=== PATIENT | female | born 1980 | race Asian ===

== ENCOUNTER 2016-09-26 19:23 | Emergency (ER) | payer MEDICAID, OTHER ==
[~2016-09-26] VITALS: Ht 157.5 cm; Wt 98.0 kg
[2016-09-26 19:43] VITALS: Ht 157.5 cm; Wt 98.0 kg
[2016-09-26] MEDS ORDERED: ONDANSETRON 4 MG INJ IV STA ×2 (20:20→21:04)
[2016-09-26] MEDS ORDERED: SOD CHLORIDE 0.9% 1,000 ML IV STA (20:20)
[2016-09-26] MEDS ORDERED: morphine 2 MG INJ IV ONE (20:30)
[2016-09-26 20:44] LABS: ADD SCAN DIFF NO
[2016-09-26 20:48] LABS: BASOPHIL # 0.1 10^3/ul (0.0-0.1); BASOPHILS % 0.7 % (0.0-2.0); EOSINOPHILS # 0.2 10^3/ul (0.0-0.5); HEMATOCRIT 31.9 % (37.0-47.0); HEMOGLOBIN 9.5 g/dl (12.0-16.0); LYMPHOCYTES # 4.6 10^3/ul (0.8-2.9); LYMPHOCYTES % 41.4 % (15.0-51.0); MEAN CORPUSCULAR HEMOGLOBIN 22.3 pg (29.0-33.0); MEAN CORPUSCULAR HGB CONC 29.8 g/dl (32.0-37.0); MEAN CORPUSCULAR VOLUME 74.9 fl (82.0-101.0); MEAN PLATELET VOLUME 10.1 fl (7.4-10.4); MONOCYTE # 0.8 10^3/ul (0.3-0.9); MONOCYTES % 7.3 % (0.0-11.0); NEUTROPHIL # 5.3 10^3/ul (1.6-7.5); NEUTROPHILS % 48.2 % (39.0-77.0); NUCLEATED RED BLOOD CELLS% 0.2 /100WBC (0.0-0.0); PLATELET COUNT 441 10^3/UL (140-415); RED BLOOD COUNT 4.26 10^6/ul (4.20-5.40); RED CELL DISTRIBUTION WIDTH 17.4 % (11.5-14.5)
[2016-09-26 20:48] LABS: ADD UMIC YES; URINE BILIRUBIN (Dip) NEGATIVE (NEGATIVE); URINE BLOOD (Dip) 3+ (NEGATIVE); URINE COLOR LT. YELLOW (YELLOW); URINE GLUCOSE (Dip) NEGATIVE (NEGATIVE); URINE KETONES (Dip) NEGATIVE (NEGATIVE); URINE LEUKOCYTE ESTERASE (Dip) NEGATIVE (NEGATIVE); URINE NITRITE (Dip) NEGATIVE (NEGATIVE); URINE TOTAL PROTEIN (Dip) NEGATIVE (NEGATIVE); URINE UROBILINOGEN (Dip) 0.2 E.U./dL (0.1-1.0)
--- NOTE | 2016-09-26 20:48 | ERD ---
ER Documentation Chief Complaint Date/Time DATE: 09/26/16 TIME: 20:42 Chief Complaint right side abd pain x 2 weeks no n/v/d HPI This 36-year-old female presents to emergency department today for abdominal pain, nausea, hematuria, and blood in stool. Patient is from [facility], has a friend with her for translation but she is able to understand some Mauritian. Patient brings paperwork from a clinic documenting that she was seen 09/14/2016 diagnosed with uterine leiomyoma, abdominal pain, and blood in stool. She has multiple referrals pending to gynecology, gastroenterology as well as lab work. Patient is here today because her abdomen is growing in size, pain is increasing. Patient reports mild shortness of breath related to abdomen sides, denies history of pancreatitis, hepatitis, or cholecystitis. Patient reports that she is currently menstruating. Pain greater than 10/10 on pain scale. ROS All systems reviewed and are negative except as per history of present illness. Medications Home Meds Active Scripts Hydrocodone/Acetaminophen (Machias 10-325 Tablet) 1 Each Tablet, 1 TAB PO Q8 Y for PAIN, #7 TAB Prov:KOREY,SIMRAN 09/26/16 Naproxen* (Naprosyn*) 500 Mg Tablet, 500 MG PO BID Y for PAIN AND/OR INFLAMMATION, #30 TAB Prov:KOREY,ISMRAN 09/26/16 Allergies Allergies: Coded Allergies: No Known Allergy (Unverified , 09/26/16) PMhx/Soc History of Surgery: No Anesthesia Reaction: No Hx Neurological Disorder: No Hx Respiratory Disorders: No Hx Psychiatric Problems: No Hx Miscellaneous Medical Probl: Yes (uterine meioma, GIB, DM2) Hx Alcohol Use: Yes (quit 2 months ago; hx of heavy drinking) Hx Substance Use: No Hx Tobacco Use: Yes (quit 2 months ago; hx of heavy drinking) Smoking Status: Former smoker Physical Exam Vitals Vital Signs Date Time Temp Pulse Resp B/P Pulse Ox O2 Delivery O2 Flow Rate FiO2 09/27/16 00:32 98.5 78 20 136/77 97 09/26/16 19:43 99.3 89 20 146/81 97 Vitals stable, triage notes reviewed Physical Exam Const: Patient is in obvious discomfort, pain with movement, no acute distress Head: Atraumatic Eyes: Normal Conjunctiva, no jaundice, PERRLA, EOMI ENT: Normal External Ears, Nose and Mouth. Mucous membranes moist Neck: Resp: Clear to auscultation bilaterally, no rales wheezes or rhonchi Cardio: Regular rate and rhythm, no murmurs Abd: Abdomen large, distended, tympanic to percussion, tender to palpation, palpable umbilical mass, palpable right upper and lower quadrant firmness. Tenderness over pelvis and bladder. No CVA tenderness, no Anthony sign Skin: Back: No midline or flank tenderness Ext: Neur: Awake and alert Psych: Normal Mood and Affect Result Diagram: 09/26/16203909/26/162039 Results 24 hrs Laboratory Tests Test 09/26/16 20:15 09/26/16 20:20 09/26/16 20:40 Stool Occult Blood NEGATIVE Urine Color LT. YELLOW Urine Clarity SLIGHTLY CLOUDY Urine pH 6.5 Urine Specific [place] 1.020 Urine Ketones NEGATIVE Urine Nitrite NEGATIVE Urine Bilirubin NEGATIVE Urine Urobilinogen 0.2 E.U./dL Urine Leukocyte Esterase NEGATIVE Urine Microscopic RBC >200/HPF Urine Microscopic WBC 0-2/HPF Urine Epithelial Cells OCCASIONAL Urine Bacteria RARE Urine Hemoglobin 3+ Urine Glucose NEGATIVE% Urine Total Protein NEGATIVE White Blood Count 11.010^3/ul Red Blood Count 4.2610^6/ul Hemoglobin 9.5g/dl Hematocrit 31.9% Mean Corpuscular Volume 74.9fl Mean Corpuscular Hemoglobin 22.3pg Mean Corpuscular Hemoglobin Concent 29.8g/dl Red Cell Distribution Width 17.4% Platelet Count 82906^3/UL Mean Platelet Volume 10.1fl Neutrophils % 48.2% Lymphocytes % 41.4% Monocytes % 7.3% Eosinophils % 2.0% Basophils % 0.7% Nucleated Red Blood Cells % 0.2/100WBC Neutrophils # 5.310^3/ul Lymphocytes # 4.610^3/ul Monocytes # 0.810^3/ul Eosinophils # 0.210^3/ul Basophils # 0.110^3/ul Nucleated Red Blood Cells # 0.010^3/ul Sodium Level 139mmol/L Potassium Level 4.0mmol/L Chloride Level 104mmol/L Carbon Dioxide Level 27mmol/L Anion Gap 12 Blood Urea Nitrogen 11mg/dl Creatinine 0.66mg/dl Glucose Level 156mg/dl Calcium Level 9.6mg/dl Total Bilirubin 0.0mg/dl Direct Bilirubin 0.00mg/dl Indirect Bilirubin 0.0mg/dl Aspartate Amino Transf (AST/SGOT) 25IU/L Alanine Aminotransferase (ALT/SGPT) 34IU/L Alkaline Phosphatase 59IU/L Total Protein 8.2g/dl Albumin 4.4g/dl Globulin 3.80g/dl Albumin/Globulin Ratio 1.15 Lipase 60U/L Current Medications Medications (Trade) Dose Ordered Sig/Griselda Route PRN Reason Start Time Stop Time Status Last Admin Dose Admin Sodium Chloride (NS) 1,000 ml @ 1,000 mls/hr Q1H STAT IV 09/26/16 20:20 09/26/16 21:19 DC 09/26/16 20:40 Ondansetron HCl (Zofran Inj) 4 mg ONCE STAT IV 09/26/16 20:20 09/26/16 20:27 DC 09/26/16 20:40 Morphine Sulfate (morphine) 2 mg ONCE ONCE IV 09/26/16 20:30 09/26/16 20:31 DC 09/26/16 20:40 Morphine Sulfate (morphine) 4 mg ONCE ONCE IM 09/26/16 21:00 09/26/16 21:01 DC 09/26/16 20:53 Ondansetron HCl (Zofran Inj) 4 mg ONCE STAT IV 09/26/16 21:04 09/26/16 21:05 DC 09/26/16 21:16 IV Flush 10 ml 10 ml STK-MED ONCE .ROUTE 09/26/16 21:40 09/26/16 21:41 DC 09/26/16 22:11 Sodium Chloride (NS) 100 ml @ ud STK-MED ONCE .ROUTE 09/26/16 21:40 09/26/16 21:41 DC 09/26/16 22:12 Iohexol (Omnipaque 300mg/ ml) 150 ml STK-MED ONCE .ROUTE 09/26/16 21:40 09/26/16 21:41 DC 09/26/16 22:11 Interpretation text CBC shows no evidence of hemorrhage or infection, anemia noted with hemoglobin 9.5 and hematocrit 31.9 Chemistry shows no evidence of significant electrolyte abnormalities or renal insufficiency Liver function tests shows no evidence of acute biliary or hepatic dysfunction Lipase shows no evidence of acute pancreatitis Urinalysis shows no evidence of leukocytosis or nitrates, positive hematuria consistent with patient's report of menses. Procedures/MDM PROCEDURE: CT ABDOMEN/PELVIS WITH CONTRAST CLINICAL INDICATION: 36-year-old female with abdominal pain. The patient has a history of fibroids. TECHNIQUE: The study was performed utilizing a GE [employer] VCT 64-slice CT scanner. Direct axial sections were obtained through the abdomen and pelvis with the use of 100 cc of Omnipaque-300 nonionic intravenous contrast material. Sagittal and coronal reformations were obtained. One or more of the following dose reduction techniques were utilized: automated exposure control, adjustment of the mA and/or kV according to patient's size or use of iterative reconstruction technique. The images were reviewed on a PACS workstation. CTD/ vol = 22.4 mGy; Total Exam DLP = 1278.7 mGy-cm. COMPARISON: None. FINDINGS: There is trace bibasilar subsegmental atelectasis.. There is no evidence for significant pleural effusion. The liver has a normal size and contour without focal areas of abnormal density or contrast enhancement. No intrahepatic nor extrahepatic biliary ductal dilatation is seen. The gallbladder demonstrates no wall thickening nor pericholecystic fluid. No biliary stones are evident. The pancreas is without areas of abnormal attenuation or contrast enhancement. This spleen is identified and has a normal size without abnormal density or contrast enhancement. The adrenal glands are unremarkable. The kidneys are functional bilaterally without abnormal density. No hydroureteronephrosis nor nephroureterolithiasis is evident. The urinary bladder contains urine. There is a small umbilical hernia with an opening of 11 x 9 mm containing fat. There is no evidence for bowel obstruction. There is a solitary small diverticula within the ascending colon without surrounding inflammatory changes. The appendix is retrocecal and is without edema or surrounding inflammatory reaction. The uterus is markedly enlarged and heterogeneous measuring approximately 17.8 x 13.0 x 14.8 cm projecting into the mid abdomen and displacing abdominal contents. There is a left ovarian cyst measuring approximately 2.8 x 2.3 x 2.4 cm. There is no significant free fluid. The aortoiliac vessels are without aneurysmal dilatation. The osseous structures are intact. IMPRESSION: 1. Markedly enlarged heterogeneous fibromatous uterus projecting into the mid abdomen. 2. Left ovarian cyst. 3. Solitary ascending colon diverticula without surrounding inflammatory changes. 4. Small umbilical hernia containing fat. 5. No CT evidence for appendicitis. .Stephen Oseguera MD, Date Time Electronically viewed and signed by .Stephen Oseguera MD, on 09/26/2016 23:32 This 36-year-old female presents to emergency department today for abdominal pain. Patient is in obvious discomfort, moaning in pain, having difficulty moving, reports that she was seen by her primary clinic diagnosed with uterine fibroids, abdominal pain and blood in stool. Patient reports she is currently menstruating, has nausea without vomiting. Patient reports that her abdomen has been getting larger every day. Physical exam findings palpable abdominal mass around the umbilicus with right-sided tenderness and pelvic tenderness. Rectal exam negative for occult blood. Patient has pain during examination. No obvious mass or hemorrhoidal tissue seen. Differential diagnosis includes but not limited to pancreatitis, hepatitis, uterine mass, abdominal mass. CAT scan with IV contrast findings include : 1. Markedly enlarged heterogeneous fibromatous uterus projecting into the mid abdomen. 2. Left ovarian cyst. 3. Solitary ascending colon diverticula without surrounding inflammatory changes. 4. Small umbilical hernia containing fat. 5. No CT evidence for appendicitis.. Patient receives 1 L of IV fluid, total of 6 mg morphine. Before pain is controlled. Patient receives total of 8 mg of Zofran for nausea. Laboratory findings include CBC anemia, no evidence of acute infection , chemistry without renal insufficiency or electrolyte imbalance, urinalysis without leukocytosis or nitrates. Patient remains in emergency department until pain has stabilized. Patient will follow up with gynecology for surgical consult. Patient has referral with a scheduled appointment November 05. Teaching provided related to uterine fibroids, heavy menstrual periods, blood loss and anemia. Instructed to return to emergency department for worsening of symptoms , menstruation lasting longer than 7 days. Pain not controlled with current plan. I feel the patient is stable for discharge at this time with outpatient management by DIRECTOR OF CURRICULUM AND INSTRUCTION. I have discussed results, examination findings, the treatment plan with the patient and family present prior to discharge. Indications for emergent reevaluation, side effects of medication were also discussed. All questions were answered. Patient verbalizes understanding and agrees with plan of care. Departure Diagnosis: Primary Impression: Abdominal pain Abdominal location: periumbilical Qualified Code: R10.33 - Periumbilical abdominal pain Additional Impressions: Leiomyoma of uterus Uterine leiomyoma location: unspecified location Qualified Code: D25.9 - Uterine leiomyoma, unspecified location Ovarian cyst Laterality: left Qualified Code: N83.202 - Cyst of left ovary Condition: Good Patient Instructions: Ovarian Cyst, Uterine Fibroids Additional Instructions: Thank you for for coming to [facility] for your care today. Please ask your nurse or provider if you have questions about your care today and do not leave until all your questions have been answered. Please use any medications given as directed and follow-up with your doctor (or the doctor you were referred to) in the next 2-3 days. If you do not have a primary care doctor you may follow up at the [facility] (listed below). You may also use motrin and tylenol as needed for fever and/or pain unless instructed otherwise by your provider or nurse. Indications for more urgent follow-up have been discussed, but you may return to the Emergency Department at ANY time for any worrisome or worsening symptoms. If you have abdominal pain, please know that no test or exam you received is perfect and you should follow up within 8 hours for continued pain. If you had any imaging studies today, such as an X-Ray or CT Scan, these studies will be reviewed later by a radiologist. You will be called if there are important findings that were not identified today, so make sure the contact information you provided at registration is correct. If you received any narcotic pain control medicine today, such as Vicodin, Morphine or Dilaudid, your coordination and judgment may be affected for a number of hours. Please do not drive or operate heavy machinery, and you may want someone to assist you at home. If you were given a prescription for narcotic medication, be aware that it is very addictive- use sparingly and only if necessary. SIMRAN NAIR September 26, 2016 20:48
[2016-09-26 20:54] LABS: URINE RBCS >200 /HPF (0)
[2016-09-26 20:55] LABS: BACTERIA,URINE RARE
[2016-09-26] MEDS ORDERED: morphine 10 MG INJ IM ONE (21:00)
[2016-09-26 21:31] LABS: ALBUMIN 4.4 g/dl (3.3-4.9); ALBUMIN/GLOBULIN RATIO 1.15; CALCIUM 9.6 mg/dl (8.4-10.2); CREATININE 0.66 mg/dl (0.44-1.00); TOTAL PROTEIN 8.2 g/dl (6.1-8.1)
[2016-09-26] MEDS ORDERED: IOHEXOL 300MG/ML 150 ML BTL ONE (21:40)
[2016-09-26] MEDS ORDERED: SOD CHLORIDE 0.9% 100 ML ONE (21:40)
--- NOTE | 2016-09-26 23:33 | RADRPT ---
PROCEDURE: CT ABDOMEN/PELVIS WITH CONTRAST CLINICAL INDICATION: 36-year-old female with abdominal pain. The patient has a history of fibroid s. TECHNIQUE: The study was performed utilizing a GE [employer] VCT 64-slice CT scanner. Direct axia l sections were obtained through the abdomen and pelvis with the use of 100 cc of Omnipaque-300 renato onic intravenous contrast material. Sagittal and coronal reformations were obtained. One or more of the following dose reduction techniques were utilized: automated exposure control, adjustment of the mA and/or kV according to patient's size or use of iterative reconstruction technique. The images were reviewed on a PACS workstation. CTD/vol = 22.4 mGy; Total Exam DLP = 1278.7 mGy-cm. COMPARISON: None. FINDINGS: There is trace bibasilar subsegmental atelectasis.. There is no evidence for significant pleural ef fusion. The liver has a normal size and contour without focal areas of abnormal density or contrast enhancement. No intrahepatic nor extrahepatic biliary ductal dilatation is seen. The gallbladder de monstrates no wall thickening nor pericholecystic fluid. No biliary stones are evident. The pancreas is without areas of abnormal attenuation or contrast enhancement. This spleen is identified and villegas s a normal size without abnormal density or contrast enhancement. The adrenal glands are unremarkabl e. The kidneys are functional bilaterally without abnormal density. No hydroureteronephrosis nor nep hroureterolithiasis is evident. The urinary bladder contains urine. There is a small umbilical herni a with an opening of 11 x 9 mm containing fat. There is no evidence for bowel obstruction. There is a solitary small diverticula within the ascending colon without surrounding inflammatory changes. The appendix is retrocecal and is without edema or surrounding inflammatory reaction. The uterus is markedly enlarged and heterogeneous measuring approximately 17.8 x 13.0 x 14.8 cm projecting into t he mid abdomen and displacing abdominal contents. There is a left ovarian cyst measuring approximat ros 2.8 x 2.3 x 2.4 cm. There is no significant free fluid. The aortoiliac vessels are without ane urysmal dilatation. The osseous structures are intact. IMPRESSION: 1. Markedly enlarged heterogeneous fibromatous uterus projecting into the mid abdomen. 2. Left ovarian cyst. 3. Solitary ascending colon diverticula without surrounding inflammatory changes. 4. Small umbilical hernia containing fat. 5. No CT evidence for appendicitis. .Stephen Oseguera MD, MD Date Time Electronically viewed and signed by .Stephen Oseguera MD, MD on 09/26/2016 23:32 ./
[2016-09-26] MEDS ORDERED: HYDR-902 PO (23:44)
[2016-09-26] MEDS ORDERED: NAPR-260 PO (23:44)
[2016-09-27 00:32] VITALS: BP 136/77; PULSE 78; RESP 20; TEMP 98.5
== END 2016-09-27 00:33 | disposition home or self-care (01) ==
LOC: FTE 19:23
DX: R10.33 Periumbilical pain (principal); D25.9 Leiomyoma of uterus, unspecified; N83.202 Unspecified ovarian cyst, left side; R11.0 Nausea; E11.9 Type 2 diabetes mellitus without complications; R10.2 Pelvic and perineal pain; Z87.891 Personal history of nicotine dependence
CPT/HCPCS: 74177; 80053; 81001; 82270; 83690; 85025; J2270; J2405; J7030; Q9967; Z7610; 36415; 96372; 96374; 96375; 96376